=== PATIENT | male | born 1935 | race Caucasian/White ===

== ENCOUNTER 2021-07-30 13:08 | Emergency (ER) | payer OTHER ==
[~2021-07-30] VITALS: Ht 170.2 cm; Wt 72.1 kg
--- NOTE | 2021-07-30 13:08 | NUR ---
BIBRA 76 FROM [facility] [facility] C/O DIZZINESS, WAS ABLE TO SIT DOWN -LOC -TRAUMA. VITALS ARE WITHIN NORMAL LIMITS. BREATHING IS REGULAR AND UNLABORED. PT ATTCHED TO MONITOR. EKG WAS PERFORMED BY TECH.
--- NOTE | 2021-07-30 13:21 | NUR ---
PT HAD AN IV ESTABLISHED FROM EMS R WRIST 20G, LABD WERE DRAWN AND COLLECTED AT BEDSIDE.
[2021-07-30 14:01] LABS: BASOPHILS # (AUTO) 0.1 K/uL (0.0-0.2); BASOPHILS % (AUTO) 0.8 % (0.0-2.0); EOSINOPHILS % (AUTO) 1.8 % (0.0-6.0); HEMATOCRIT 44 % (39-51); HEMOGLOBIN 14.6 g/dL (13.5-17.5); LYMPHOCYTES # (AUTO) 3.3 K/uL (0.8-4.8); LYMPHOCYTES % (AUTO) 35.6 % (20.0-44.0); MEAN CORPUSCULAR HGB CONC 33 g/dl (31.0-36.0); MEAN CORPUSCULAR VOLUME 91 fL (80-96); MONOCYTES # (AUTO) 0.7 K/uL (0.1-1.30); MONOCYTES % (AUTO) 8.1 % (2.0-12.0); NEUTROPHILS # (AUTO) 4.9 K/uL (1.8-8.9); NEUTROPHILS % (AUTO) 53.7 % (43.0-81.0); PLATELET COUNT (AUTO) 205 K/uL (150-450); RED BLOOD CELL COUNT(AUTO) 4.84 MIL/uL (4.5-6.0); WHITE BLOOD COUNT (AUTO) 9.1 K/uL (4.3-11.0)
--- NOTE | 2021-07-30 14:29 | NUR ---
SPOKE TO PT SON GREG CHAVES [phone], DAUGHTER'S NUMBER, AMANUEL, [phone]
[2021-07-30 14:47] LABS: ALANINE AMINOTRANSFERASE 14 U/L (12-78); ALBUMIN 3.6 g/dL (3.4-5.0); ALKALINE PHOSPHATASE 75 U/L (46-116); ASPARTATE AMINOTRANSFERASE 16 U/L (15-37); BILIRUBIN,DIRECT 0.1 mg/dL (0.0-0.2); BILIRUBIN,TOTAL 0.4 mg/dL (0.2-1.0); CALCIUM, SERUM 8.8 mg/dL (8.5-10.1); CARBON DIOXIDE 23 mmol/L (21-32); CHLORIDE 102 mmol/L (98-107); CREATININE 1.1 mg/dL (0.6-1.3); GLUCOSE 115 mg/dL (74-106); POTASSIUM 3.9 mmol/L (3.5-5.1); SODIUM SERUM 136 mmol/L (136-145); TOTAL PROTEIN, SERUM 7.9 g/dL (6.4-8.2); UREA NITROGEN, BLOOD 14 mg/dL (7-18)
--- NOTE | 2021-07-30 16:01 | NUR ---
Patient discharged to home in stable condition. Written and verbal after care instructions given. Patient verbalizes understanding of instruction. Patient's son was called to cook pickled meat his father.
[2021-07-30 16:03] VITALS: BP 111/72
== END 2021-07-30 16:17 | disposition home or self-care (01) ==
LOC: ER 13:32
DX: R42 Dizziness and giddiness (principal)
CPT/HCPCS: 36415; 70450-TC; 80048-TC; 80076-TC; 84484-TC; 85025-TC; 85730-TC